=== PATIENT | female | born 1990 | race Hispanic/Latino ===

== ENCOUNTER 2018-01-24 08:35 | Day surgery (SDC) | payer BC ==
[2018-01-21 09:44] LABS: Absolute Lymphocytes (CBC) 1.6 K/uL (0.7-4.9); Absolute Monocytes 0.4 K/uL (0.1-1.3); Absolute Neutrophil 4.1 K/uL (1.8-8.0); Basophils % 0.6 % (0-1.3); Eosinophils % 3.9 % (0-4.4); Hematocrit 41.4 % (36.0-45.0); Lymphocytes % 24.7 % (15.3-44.8); MPV 7.6 fL (7.6-11.3); Monocytes % 6.8 % (3.3-12.3); RBC Red Blood Cell Count 4.71 M/uL (3.86-4.86)
[2018-01-21 09:56] LABS: BUN Blood Urea Nitrogen 9 mg/dL (7-18); Bicarbonate 30 mmol/L (21-32); Glucose Level 95 mg/dL (74-106); Potassium 4.3 mmol/L (3.5-5.1); Sodium Level 140 mmol/L (136-145)
[2018-01-24 08:55] LABS: Specific Gravity >= 1.030 (1.005-1.030)
[2018-01-24] MEDS ORDERED: Ringers Lactate 1,000 ML IV ONE (09:00)
[2018-01-24] MEDS ORDERED: CEFAZOLIN/SWI 1gm 1 GM/10 ML SYR ONE (09:00)
[2018-01-24] MEDS ORDERED: LIDOCAINE 2% MPF 5 ML VIAL ONE (13:11)
[2018-01-24] MEDS ORDERED: FENTANYL CITR 100 MCG/2 ML ONE (13:11)
[2018-01-24] MEDS ORDERED: PROPOFOL 200 MG/20 ML VIAL IV ONE (13:11)
[2018-01-24] MEDS ORDERED: MIDAZOLAM HCL 2 MG/2 ML INJ ONE (13:12)
[2018-01-24] MEDS ORDERED: ONDANSETRON HCL 40 MG/20 ML VIAL ONE (13:13)
--- NOTE | 2018-01-24 14:22 | P.BOP ---
Preoperative diagnosis: right inner upper arm tender enlarging subcutaneous mass Postoperative diagnosis: same Primary procedure: Excision right inner upper arm tender enlarging subcutaneous mass 6x5cm Estimated blood loss: <10cc Specimen: mass Findings: right inner upper arm subcutaneous mass partially axillary Anesthesia: General Complications: None Drain(s): KEVEN drain
[2018-01-24] MEDS ORDERED: CODEINE 30MG/APAP 300MG TAB ONE (15:32)
--- NOTE | 2018-01-26 00:12 | OP ---
Date of Procedure: 01/24/2018 Surgeon: Abhinav Ordoñez MD Preoperative Diagnosis: Right inner upper arm tender, enlarging subcutaneous mass. Postoperative Diagnosis: Right inner upper arm tender, enlarging subcutaneous mass. Procedure: Excision of right inner arm tender, enlarging subcutaneous mass, 6 x 5 cm. Specimen: None. Drain: KEVEN drain #7. Anesthesia: General, plus local. Indications: This is a case of a 27-year-old patient with enlarging amongst in the right upper arm a alirio. It is right at the border of the axilla. The mass is mostly in the upper arm, although some of that is on the axilla. The benefits, alternatives, and risks of excision were fully explained, whic h include but are not limited to infection, bleeding, damage to adjacent structures, anesthesia compl ication, chronic numbness, chronic pain, CT, and even . She also understands this may not relie ve any symptoms, she might need more than one surgical intervention. She understood, signed a consen t. Description Of Procedure: The patient was brought to the operating room, placed in supine position. Anesthesia was done without complication. The area of concern was marked by me and the patient prev iously in the holding room. A time-out was called. Right arm was prepped and draped in usual steril e fashion and right axilla too. An incision was made to include part of the skin, which just looked like it is attached to the mass too and the incision was carried out all the way down to near the mus rodrigo. The mass was clearly delineated. About 10% of 50% of that goes into the area of the axilla and the rest on the arm. The mass was completely excised leaving a cavity behind, that I believe it is going to have a large seroma limiting the healing process properly, especially when she will be abduc ting this arm and it will be squeezing the area of a possible seroma, so I decided to leave a KEVEN barragan n there coming from the area of the axilla, secured in place with a 3-0 nylon. The area was closed i n layers with 3-0 chromic and then 3-0 chromic and then staple. Sponge count, instrument counts were correct. The patient tolerated the procedure well. Hemostasis was obtained before closure. Local anesthetic of also was done before closure. GOPAL/PAGEL Voice ID: [id number] Report ID: [id number]
--- NOTE | 2018-01-26 00:12 | DS ---
Date of Discharge: 01/24/2018 Diagnosis: Right inner upper arm tender, enlarging subcutaneous mass. Procedures: Excisional biopsy of right inner upper arm enlarging subcutaneous mass, 6 x 5 cm. Disposition: Home. Activity: As tolerated. No heavy lifting. Followup: Follow up in my office in 1 week. Call for appointment on [phone]. Keep area dry for 48 hours, then may shower. KEVEN drain instructions were given. Record output every 24 hours. ESSENCE Voice ID: [id number] Report ID: [id number]
== END 2018-01-24 16:15 | disposition home or self-care (01) ==
LOC: OR 08:35
PROVIDERS: ATTEND Surgery
PROC: 0JBG0ZZ Excision of Right Lower Arm Subcutaneous Tissue and Fascia, Open Approach (ICD-10-PCS; principal; 2018-01-24 11:00)
DX: R22.31 Localized swelling, mass and lump, right upper limb (principal)
CPT/HCPCS: 36415; 80048; 81025; 85025; 88304; 88305; J0690; J2250; J2405; J2704; J3010